=== PATIENT | female | born 1955 | race Caucasian/White ===

== ENCOUNTER 2016-08-13 05:03 | Inpatient (IN) | payer OTHER ==
[~2016-08-13] VITALS: Ht 154.9 cm; Wt 63.5 kg
[~2016-08-13 05:03] MED LIST: ATORVASTATIN CA10 M1 PO; CLONAZEPAM0.5 M2 PO; HUMALOG100 UNIT/2; HUMALOG100 UNIT/2 SQ; SERTRALINE HCL100 MG PO; ST. JOSEPH ASPI81 M1 PO; TRESIBA FL100 UNIT/1 SQ
[2016-08-13] MEDS ORDERED: CLONAZEPAM0.5 M2 PO ×2 (11:22→11:26)
[2016-08-13] MEDS ORDERED: CLONAZEPAM0.25 M1 PO (11:23)
[2016-08-13] MEDS ORDERED: CLONAZEPAM0.5 M3 PO (11:24)
[2016-08-13] MEDS ORDERED: DILAUDID2 M1 PO (12:59)
[2016-08-13] MEDS ORDERED: MS CONTIN15 M2 PO (12:59)
[2016-08-13] MEDS ORDERED: ASPIRIN EC325 M2 PO (12:59)
[2016-08-13] MEDS ORDERED: MIRALAX17 G1 PO (12:59)
[2016-08-13] MEDS ORDERED: COLACE100 M1 PO (12:59)
--- NOTE | 2016-08-13 13:02 | Patient Discharge Instructions ---
Discharge Instructions General Discharge Information You were seen/treated for: Left hip pain related to unilateral primary osteoarthritis You had these procedures: Left total hip replacement Watch for these problems: Increasing pain despite the use of pain medication. Increasing redness, warmth, swelling. Drainage of any type from incision. Inability to bear weight on operative leg. Persistent nausea and vomitting. Fever greater than 101.5 degrees. Do not soak the wound: Yes No bath, but you may shower: Yes Other wound care: Keep wound clean and dry. Your dressing will be changed on the second day following your surgery by nursing. Daily dry dressing changes recommend thereafter. No ointments or lotions of any type on or near incision at any time. No exceptions. Special Instructions: Aspirin: You are taking aspirin to help prevent the development of blood clots. You will be taking it twice a day. Please take this as directed for four weeks. Please take with food to help protect your stomach. Constipation: Pain medications can be very constipating. You have been given a prescription for colace and miralax. Please take this as directed. In the event that you run out of these medications, they are available over the counter. You may discontinue these medications if you develop loose stool or diarrhea. If you are unable to move your bowels for several days, or if you have not passed any gas, please contact your doctor. Diet Continue normal diet: Yes Recommended Diet: Diabetic Activity Full Activity/No Limits: No Activity Self Limited: Yes Pounds, do NOT lift more than: 10 Acute Coronary Syndrome Inclusion Criteria At DC or during hospital stay patient has or had the following: ACS DIAGNOSIS No Discharge Core Measures Meds if any: Prescribed or Continued at Discharge Meds if any: NOT Prescribed or Continued at Discharge Congestive Heart Failure Inclusion Criteria At DC or during hospital stay patient has or had the following: CHF DIAGNOSIS No Discharge Core Measures Meds if any: Prescribed or Continued at Discharge Meds if any: NOT Prescribed or Continued at Discharge Cerebrovascular accident Inclusion Criteria At DC or during hospital stay patient has or had the following: CVA/TIA Diagnosis No Discharge Core Measures Meds if any: Prescribed or Continued at Discharge Meds if any: NOT Prescribed or Continued at Discharge Venous thromboembolism Inclusion Criteria VTE Diagnosis No VTE Type NONE VTE Confirmed by (Test) NONE Discharge Core Measures - Per Current guidelines, there needs to be overlap - treatment for the first 5 days of Warfarin therapy. - If discharged on Warfarin prior to 5 days of - overlap therapy, the patient will need to be - assessed for post discharge needs including - *Post discharge parental anticoagulation - *Warfarin and/or parental anticoagulation education - *Follow up date to check INR post discharge At least 5 days overlap therapy as Inpatient No Meds if any: Prescribed or Continued at Discharge Note: Overlap Therapy is Warfarin and Anticoagulant Meds if any: NOT Prescribed or Continued at Discharge
--- NOTE | 2016-08-13 13:03 | Admission Core Measures ---
Admission Meds I reviewed the following Meds: Current Medications Sig/Elin Start time Last Medication Dose Stop Time Status Admin Acetaminophen 975 MG ONCE 08/13 0000 NR (Tylenol) 08/13 2358 Atorvastatin Calcium 10 MG DAILY 08/14 1000 AC (Lipitor) Cefazolin Sodium 2,000 MG ONCE 08/13 NR (Kefzol-Ancef Inj) 08/13 2358 Clonazepam 0.5 MG DAILY 08/14 1000 AC (KlonoPIN) 08/21 0959 Oxycodone HCl 10 MG ONCE 08/13 0000 AC (Roxicodone) 08/13 2358 Sertraline HCl 100 MG DAILY 08/14 1000 AC (Zoloft) Acute Coronary Syndrome Inclusion Criteria ACS Diagnosis No Inpatient Core Measures LDL Reminder: If No, please order W/I first 24hr of stay Congestive Heart Failure Inclusion Criteria CHF Diagnosis No Cerebrovascular accident Inclusion Criteria CVA/TIA Diagnosis No Inpatient Core Measures Bedside Swallow Eval Reminder: If BSE failed, place ST order Antithrombotic Reminder: Order Antithrombotic Medication by end of day 2 Antithrombotic Reminder: Document Reason Antithrombotic Not ordered by end of day 2 AFIB/Flutter Reminder: If Present, add to problem list AFIB/Flutter Reminder: Order Anticoag Medication for pts with AFIB/Flutter Atherosclerosis Reminder: If Present, add to problem list LDL Reminder: If No, please order W/I first 24hr of stay PT Order Reminder: If No, please order Venous thromboembolism Inpatient Core Measures VTE Risk Factors: Age > 40, Surgery No [facility] VTE prophylaxis d/t No contraindications No VTE Pharm Prophylaxis d/t No contraindications Inclusion Criteria - Per Current guidelines, there needs to be overlap - treatment for the first 5 days of Warfarin therapy. - Parenteral Anticoagulation (IV or SC) needs to be - given along with Warfarin therapy. VTE Diagnosis No VTE Type NONE VTE Confirmed by (Test) NONE Problem List As ranked by this Provider includes Assessment & Plan 1. Unilateral primary osteoarthritis, left hip HOME MEDS Home Med List Aspirin ([place] Aspirin) 81 MG TABLET. 1 TAB PO D HEARTHEALTH (Reported ) Aspirin (Ecotrin*) 325 MG TABLET.DR 1 TAB PO BID ANTICOAGULATION Atorvastatin Calcium 10 MG TABLET 1 TAB PO DAILY CHOLESTEROL (Reported) Clonazepam 0.5 MG TABLET 1 TAB PO DAILY ANXIETY (Reported) Docusate Sodium (Colace) 100 MG CAPSULE 1 CAP PO BID CONSITPATION Hydromorphone HCl (Dilaudid) 2 MG TABLET 1-2 TAB PO Q4-6 PRN PAIN Insulin Degludec (Tresiba Flextouch U-100) 100 UNIT/ML (3 ML) INSULN.PEN 30 U SQ QHS DIABETES (Reported) Insulin Lispro (Humalog) 100 UNIT/ML VIAL 9 U 1/2H B/BREAKF/DINNER diabetes ( Reported) Insulin Lispro (Humalog) 100 UNIT/ML VIAL 4 U SQ AT LUNCH diabetes (Reported) Morphine Sulfate (Ms Contin) 15 MG TABLET.ER 1 TAB PO BID PAIN Polyethylene Glycol 3350 (Miralax) 17 GRAM POWD.PACK 1 PAC PO DAILY CONSTIPATION Sertraline HCl 100 MG TABLET 1 TAB PO DAILY DEPRESSION (Reported) Discontinued Medications Clonazepam 0.5 MG TABLET 1 TAB PO D ANXIETY (Reported)
--- NOTE | 2016-08-13 13:05 | Surgical Discharge Summary ---
Visit Information Visit Dates Admission Date: 08/13/16 Discharge Date: 08/13/16 History of Present Illness Chief Complaint: Left hip pain related to unilateral primary osteoarthritis Medical History Isolation History: Standard Surgical History Pertinent Surgical History: non-contributory Review of Systems: See H&P Hospital Course Course Attending Physician: AIDAN MONTES MD Primary Care Physician: UNKNOWN Hospital Course: Patient was admitted to the hospital on 08/13/2016 for an elective total joint replacement. The procedure was tolerated well and the patient was transferred to a general surgical floor. There, the patient's diet was advanced and tolerated, the patient voided spontaneously, and was evaluated and treated by physical therapy. At the time of hospital discharge, vital signs were stable and within normal limits, neurovascular status was intact, and pain was controlled with the use of oral pain medication. Allergies: Coded Allergies: sulfamethoxazole (From [facility]RIM) ("hyper", HIVES 08/10/16) trimethoprim (From B[employer]RIM) ("hyper", HIVES 08/10/16) Disposition Summary Disposition Principal Diagnosis: Left hip unilateral primary osteoarthritis Additional Diagnosis: none Discharge Disposition: home health services Discharge Instructions General Discharge Information Code Status: Full Code Patient's Diet: Diabetic, advance as tolerated Patient's Activity: WBAT Follow-Up Instructions/Appts: Follow up with Dr. Montes in 6 weeks from date of surgery. Please call his office to arrange and or confirm this appointment. Medications at Discharge Discharge Medications: Stop taking the following medications: Aspirin ([place] Aspirin) 81 MG TABLET.DR [place] Every Day Continue taking these medications: Insulin Lispro (Humalog) 100 UNIT/ML VIAL 9 Units 1/2 HR BEFORE BREAKFAST/DINNER Insulin Lispro (Humalog) 100 UNIT/ML VIAL 4 Units SUB-Q AT LUNCH Insulin Degludec (Tresiba Flextouch U-100) 100 UNIT/ML (3 ML) INSULN.PEN 30 Units SUB-Q TAKE AT BEDTIME Atorvastatin Calcium (Atorvastatin Calcium) 10 MG TABLET 1 Tablet ORAL DAILY Sertraline HCl (Sertraline HCl) 100 MG TABLET 1 Tablet ORAL DAILY Clonazepam (Clonazepam) 0.5 MG TABLET 1 Tablet ORAL DAILY Start taking the following new medications: Aspirin (Ecotrin*) 325 MG TABLET. 1 Tablet ORAL TWICE DAILY Qty = 60 No Refills Docusate Sodium (Colace) 100 MG CAPSULE 1 Capsule ORAL TWICE DAILY Qty = 14 No Refills Instructions: DISCONTINUE USE IF YOU DEVELOP LOOSE STOOL OR DIARRHEA Hydromorphone HCl (Dilaudid) 2 MG TABLET 1-2 Tablet ORAL EVERY 4-6 HOURS as needed for PAIN Qty = 36 No Refills Comments: LAST GIVEN 08/13/16 @ 7354 Polyethylene Glycol 3350 (Miralax) 17 GRAM POWD.PACK 1 Packet ORAL DAILY Qty = 7 No Refills Instructions: dissolve in water, DISCONTINUE USE IF YOU DEVELOP LOOSE STOOL OR DIARRHEA Morphine Sulfate (Ms Contin) 15 MG TABLET.ER 1 Tablet ORAL TWICE DAILY Qty = 6 No Refills
--- NOTE | 2016-08-13 14:05 | RADIOLOGY REPORT ---
EXAMINATION: XR HIP, LEFT CLINICAL INFORMATION: Status post left total hip arthroplasty COMPARISON: None TECHNIQUE: Two views of the left hip. FINDINGS: Total hip arthroplasty components are in the usual position and alignment without evidence of loosening or fracture. IMPRESSION: Standard postoperative appearance of the left total hip arthroplasty.
--- NOTE | 2016-08-13 15:28 | PN- Orthopedic ---
Subjective Subjective: Post op check Awake, alert Denies any nausea or pain Wants to eat - awaiting food Objective Vital Signs and I&Os VSS, afebrile Physical Exam: VSS, afebrile General: alert and oriented times three Chest: clear anteriorly bilaterally, RRR Abd: soft, good bs Ext: warm, no edema, positive sensate, no calf tenderness Wound: dressed, dry, ice pack in place Assessment/Plan Assessment/Plan 61yo female s/p L THR pain management PT - WBAT ASA 325mg po bid for dvt ppx dc planning - home once cleared by PT abx 24hrs post op Core Measures/Miscellaneous Venous Thromboembolism VTE Risk Factors: Age > 40, Surgery VTE Contraindications: No Contraindications VTE Diagnosis: No VTE Type: NONE VTE Confirmed by (Test): NONE Beta Wild Is Beta Wild a Home Med? No Antibiotics Is Patient on Antibiotics? Yes If Yes: prophylaxis
[2016-08-13 15:41] VITALS: BP 112/72
--- NOTE | 2016-08-13 16:32 | Operative Report ---
Operative/Inv Procedure Report Surgery Date: 08/13/16 Name of Procedure: Left total hip replacement Pre-Operative Diagnosis: Primary left hip DJD Post-Operative Diagnosis: Same Estimated Blood Loss: 350 Surgeon/Loading Unit Operator Seating: SIMON MERIDA,AIDAN Daniels Anesthesia: block Operative/Procedure Note Note: Description of Procedure: The patient was taken to the operating room and positively identified. After induction of spinal anesthesia and administration of appropriate pre-operative antibiotics, the patient was positioned supine on the operating room table and all bony prominences were well padded. After performing a surgical timeout, the left lower extremity was prepped and draped in the usual sterile fashion. A direct anterior approach was made to the left hip. The incision was carried sharply through superficial soft tissues to the level of the fascia. Meticulous hemostasis was maintained with Bovie electocautery. The fascia over the tensor fascia ghada muscle was opened sharply and the interval between the TFL and the sartorius was entered bluntly taking care to stay lateral to the lateral femoral cutaneous nerve. Retractors were placed around the femoral neck and the pericapsular fat was identified. The ascending branches of the lateral femoral circumflex vessels were identified and carefully coagulated. The pericapsular fat and anterior capsule were then resected. A napkin ring osteotomy was performed and the femoral head was removed without difficulty. Attention was then turned to the acetabulum. After appropriate placement of retractors, the acetabulum was exposed. Soft tissue was cleaned from the acetabular margin and notch. Overhanging osteophytes were removed and the teardrop was exposed. The acetabulum was then sequentially reamed to accept a 56 mm [place] Tritanium hemispherical solid back shell. This was impacted into place in the appropriate position and fitted with a 36 mm Trident X3 zero degree polyethylene insert. Attention was then turned to the femur. After performing the appropriate ligament releases, the proximal femur was exposed. It was then sequentially broached to accept a size #4 [place] Accolade 2 stem. This was trialed for leg length and stability. The trial component was removed and the final component was impacted into place. The trunnion was carefully cleaned and fit with a 36 mm, -5 Biolox delta ceramic femoral head. The hip was reduced and put through a full range of motion and found to be stable. The articular space was then irrigated with sterile saline. The periarticular soft tissues were infilitrated with Marcaine. The fascial layer was closed with interrupted #1 vicryl suture and the skin was re-approximated with interrupted 2 -0 vicryl. The skin was closed with a running 3-0 V-Lock suture. Steri-strips and a sterile dressing were applied. The patient was awakened and taken to the recovery room in satisfactory condition.
[2016-08-13 18:12] VITALS: BP 108/70
== END 2016-08-13 20:30 | disposition home health service (06) | DRG 470 ==
LOC: SDA 05:03 → ENRESERV 13:42 → ENTRNSPT 14:30 → 2NB 15:38 → CMPTRNSPT 08-14 07:01
PROVIDERS: ADMIT Orthopaedic Surgery
PROC: 0SRB04A Replacement of Left Hip Joint with Ceramic on Polyethylene Synthetic Substitute, Uncemented, Open Approach (ICD-10-PCS; principal; 2016-08-13)
DX: M16.12 Unilateral primary osteoarthritis, left hip (principal); E10.42 Type 1 diabetes mellitus with diabetic polyneuropathy
CPT/HCPCS: 2NBSP; 73502-LT; 88304; 97110-GO; 97116-GO; 97161-GP; J0131; J0690; J0735; J2405; J2550; J7042